=== PATIENT | female | born 1985 | race Asian ===

== ENCOUNTER 2018-04-25 17:37 | Emergency (ER) | payer OTHER ==
[~2018-04-25] VITALS: Ht 162.6 cm; Wt 99.8 kg
[2018-04-25 17:48] VITALS: BP 134/73; TEMP 98.6
== END 2018-04-25 19:04 | disposition home or self-care (01) ==
LOC: ED 17:37
DX: J11.1 Influenza due to unidentified influenza virus with other respiratory manifestations (principal)
CPT/HCPCS: 87502; 94664; 99283